=== PATIENT | female | born 2000 | race Caucasian/White ===

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

== ENCOUNTER 2022-01-01 11:02 | Emergency (ER) | payer OTHER, SELFPAY ==
[2022-01-01 11:25] VITALS: BP 119/74; PULSE 68; RESP 19; TEMP 36.8; O2SAT 98; BMI 26.6
[2022-01-01 11:41] LABS: UTC Strep Screen (Rapid) Negative (Negative)
--- NOTE | 2022-01-01 11:53 | EXP.UTC ---
Discharge Plan Disposition Patient Disposition: Home, Self-Care Condition: Good Prescriptions Prescriptions: No Action Kyleena 17.5 mcg/24 hrs (5 yrs) 19.5 mg intrauterine device INTRAUTERI norgestimate-ethinyl estradiol 0.25-35 mg-mcg tablet 1 tab PO DAILY Qty: 28 11RF valacyclovir 1 gram tablet 1,000 mg PO BID Qty: 60 4RF Referrals Follow up/Referrals: Mike Lane MD [Primary Care Provider] - See instructions Activity Restrictions/Add. Instructions Additional Instructions/Restrictions: *Monitor Temp, Over the counter Motrin or Tylenol as directed/as needed Tylenol every 4 hours and Motrin every 6 hours (as long as your family doctor has told you that you can take it) for fever or pain. and straight to ER if unable to lower temp less than 101.0 after medication given *Warm salt water gargles may help to soothe the throat *Throat Lozenges? *Warm fluids like tea with honey may help to soothe the throat? *Sleep elevated *Humidifier/Vaporizer Your throat swab was sent for culture. Those results are typically sent to your primary care. Be sure to follow up in 2-3 days with your family doctor/primary care physician if no improvement so they can review those result and treat if necessary. If you don?t have a primary care doctor, I recommend you get one but in the mean time, you will have to return to a walk in clinic Follow up IMMEDIATELY for new or worsening symptoms or no Noticeable improvement over the next 48-72 hours. 911 for difficulty breathing or swallowing Clinical Impressions Clinical Impression: Viral pharyngitis Stand Alone Forms Stand Alone Forms: Work/School Release Instructions Patient Instructions: DI for Viral Pharyngitis, Viral Pharyngitis Discharge ED Provider: Lovely Diaz [facility] General Stated complaint: Sore throat Mode of Arrival: Ambulatory Source of Information: Patient Limitations: No Limitations Time Seen by Provider: 01/01/22 11:53 Description of Symptoms (Recalled from Triage Doc. by RN): PATIENT C/O SORE THROAT, CONGESTION AND HEADACHE SINCE SUNDAY HEENT Symptoms (Recalled from RN notes): Yes Resp Symptoms (Recalled from RN notes): No Skin Symptoms (Recalled from RN notes): No MS Symptoms (Recalled from RN notes): No Functional Status (Recalled from RN notes): WNL History of Present Illness Provider Complaint: Patient states that on sunday she started with sore throat, nasal congestion and headaches States that she has not felt well all weekend and worried that she may have strep throat so they wanted to get her tested Related Data Home Medications Medication Instructions Recorded Confirmed levonorgestrel 17.5 mcg/24 hrs intrauterine 10/08/20 (5yrs) 19.5mg intrauterine device (Kyleena) Previous Rx's Medication Instructions Recorded norgestimate 0.25 mg-ethinyl 1 tab PO DAILY #28 tabs 01/21/21 estradiol 35 mcg tablet valacyclovir 1 gram tablet 1,000 mg PO BID #60 tabs 08/04/21 Allergies Allergy/AdvReac Type Severity Reaction Status Date / Time No Known Allergies Allergy Verified 07/29/21 14:32 Worker's Comp Is this a Worker's Comp case?: No PFSH PFSH Medical History (Updated 01/01/22 @ 12:01 by Lovely Diaz APRN) Anxiety Migraine Surgical History (Updated 01/01/22 @ 11:39 by Germaine Taylor RN) History of tonsillectomy Social History (Updated 01/01/22 @ 11:39 by Germaine Taylor RN) Smoking Status: Never smoker alcohol intake: never substance use type: denies use current occupational status: student Travel in the last 8 weeks: None household members: other housing: apartment number of children: 0 caffeine: No ROS Obtained: Yes All systems reviewed & no additional complaints except as documented and Yes Systems reviewed as appropriate & no additional complaints except as documented Constitutional Constitutional: Reports system reviewed and no additiona
[2022-01-01 12:02] VITALS: BP 119/74; PULSE 68; RESP 19; TEMP 36.8; O2SAT 98
== END 2022-01-01 12:05 | disposition home or self-care (01) ==
PROVIDERS: Emergency Provider Nurse Practitioner; PCP Internal Medicine Adolescent Medicine
DX: J02.9 Acute pharyngitis, unspecified (principal); R09.81 Nasal congestion; G43.909 Migraine, unspecified, not intractable, without status migrainosus; F41.9 Anxiety disorder, unspecified; Z79.899 Other long term (current) drug therapy; Z79.3 Long term (current) use of hormonal contraceptives
CPT/HCPCS: 87880; 99213; G0463

== ENCOUNTER 2024-12-26 10:21 | Outpatient (CLI) | payer OTHER, SELFPAY ==
--- OUTSIDE RECORDS SUMMARY | 2024-12-29 10:30 | XMS_ITS | Clinical Summary ---
Author Organization [facility] Address [address] [place] [address] Care Team Providers Care Cotton Washer Name Role Phone Mike Lane MD Primary Care Provider [phone] Social History Tobacco Use Types Packs/Day Years Used Date Smoking Tobacco: Never Comments Unknown Sex and Gender Information Value Date Recorded Sex Assigned at Not on file Legal Sex Female 6:42 PM EDT Gender Identity Not on file Sexual Orientation Not on file Last Filed Vital Signs Vital Sign Reading Time Taken Comments Blood Pressure - - Pulse - - Temperature - - Respiratory Rate - - Oxygen Saturation - - Inhaled Oxygen Concentration - - Weight 56.8 kg (125 lb 2.1 oz) 09/15/2014 9:45 A M EDT Height 162.6 cm (5' 4 ) 09/15/2014 9:45 AM EDT Body Mass Index 21.48 09/15/2014 9:45 AM EDT Plan of Treatment Not on file Care Teams Cotton Washer Relationship Specialty Start Date End Date Mike Lane MD [address] [place] [address] [place] [id number] PCP - General 07/30/20
== END 2024-12-26 23:59 | disposition home or self-care (01) ==
LOC: LAB.DROPOF 12-29 10:21
PROVIDERS: Visit Provider Obstetrics & Gynecology
DX: N39.9 Disorder of urinary system, unspecified (principal)
CPT/HCPCS: 87491; 87529; 87591; 87661; 87798; 87801

== ENCOUNTER 2024-12-31 15:17 | Outpatient (CLI) | payer OTHER, SELFPAY ==
--- OUTSIDE RECORDS SUMMARY | 2024-12-31 15:20 | XMS_ITS | Clinical Summary ---
Author Organization [facility] Address [address] [place] [address] Care Team Providers Care Funeral Car Chauffeur Name Role Phone Mike Lane MD Primary Care Provider Social History Tobacco Use Types Packs/Day Years [...] of Treatment Not on file Care Teams Funeral Car Chauffeur Relationship Specialty Start Date End Date Mike Lane MD [address] [place] [address] [place] [id number] PCP - General 07/30/20
--- NOTE | 2024-12-31 15:30 | US_ITS ---
PROCEDURE: US TRANSVAGINAL CLINICAL INDICATION: IUD placement COMPARISON: US US TRANSVAGINAL from 11/15/2018 FINDINGS: Transvaginal sonographic images of the pelvis were obtained. UTERUS: 6.8 cm x 4.2cmx 3.1cm anteverted with a combined endometrial thickness of 3.8mm. There is an IUD within the uterine cavity in the correct position. LEFT OVARY: [id number] with a volume of 4.4ml. The left ovary contains multiple small peripheral follicles giving the ovary a polycystic appearance. RIGHT OVARY: 4cmx [id number] with a volume of 5.3ml. The right ovary contains multiple small peripheral follicles giving the ovary a polycystic appearance. There is trace fluid adjacent to the right ovary. Both ovaries are seen and appear polycystic. Doppler flow to both ovaries are seen. There is no fluid in the cul-de-sac. IMPRESSION: 1. Anteverted uterus normal in shape and size. The endometrium is thin. 2. There is an IUD within the uterine cavity in the correct position. 3. Both ovaries are seen and appear polycystic with multiple small peripheral follicles. 4. There is trace fluid adjacent to the right ovary. 5. No fluid in the cul-de-sac. Dictated by: Fercho Donaldson MD 12/31/2024 20:02 Fercho Donaldson MD in [place] 12/31/2024 20:02
== END 2024-12-31 23:59 | disposition home or self-care (01) ==
LOC: RAD 15:18
PROVIDERS: PCP Internal Medicine Adolescent Medicine; Visit Provider Obstetrics & Gynecology
DX: N85.4 Malposition of uterus (principal); N83.02 Follicular cyst of left ovary; N83.01 Follicular cyst of right ovary; Z97.5 Presence of (intrauterine) contraceptive device
CPT/HCPCS: 76830

== ENCOUNTER 2025-02-04 10:07 | Outpatient (CLI) | payer OTHER, SELFPAY ==
--- NOTE | 2025-02-04 | US_ITS ---
PROCEDURE: US TRANSVAGINAL CLINICAL INDICATION: COMPARISON: US US TRANSVAGINAL from 12/31/2024 FINDINGS: Transvaginal sonographic images of the pelvis were obtained. UTERUS: 6.6 cm x 3.9 cmx 3.6 cm retroverted with a combined endometrial thickness of 3.9mm. There is an IUD within the uterine cavity in the correct position. LEFT OVARY: 2.6 cmx2.2cm there are multiple small peripheral follicles giving the ovary a polycystic appearance. RIGHT OVARY: 3.4cmx 1.9 cmx1.9 cm with a volume of 6.4ml. There is evidence of an old corpus luteum in the right ovary. There are multiple small peripheral follicles giving the ovary a polycystic appearance. Both ovaries are seen and appear polycystic. Doppler flow to both ovaries are seen. There is moderate fluid in the cul-de-sac. IMPRESSION: 1. Retroverted uterus normal in shape and size. The endometrium is thin measuring 3.9 mm. 2. There is an IUD within the uterine cavity in the correct position. 3. Both ovaries are seen and appear polycystic with multiple small peripheral follicles. 4. There is a moderate amount of fluid in the cul-de-sac. This could be either recent bleeding from an ovarian cyst or possibly from an inflammatory process. The fluid appears clear. 5. I spoke to Dr. Winslow about the results. Dictated by: Fercho Donaldson MD 02/04/2025 11:50 Fercho Donaldson MD in [place] 02/04/2025 11:50
--- NOTE | 2025-02-04 10:28 | US_ITS ---
FINAL REPORT TECHNIQUE: Sonographic images of the abdomen were obtained in all four quadrants. CLINICAL HISTORY: RLQP FINDINGS: LIVER: Homogeneous. No focal hepatic lesion or intrahepatic biliary dilatation. GALLBLADDER: No gallstones. No pericholecystic fluid collection or gallbladder wall thickening. The common duct measures 4 mm. This is within normal limits for age. PANCREAS: Obscured. RIGHT KIDNEY: 10.1 cm. No hydronephrosis, mass or stone. LEFT KIDNEY: 10.1 cm. No hydronephrosis, mass or stone. SPLEEN: 8.1 cm. No focal splenic lesion. AORTA/IVC: No abdominal aortic aneurysm. Visualized IVC within normal limits. OTHER: No ascites. IMPRESSION: Unremarkable ultrasound of the abdomen. Reviewed, Interpreted and Dictated by Evelia Chan MD Transcribed by Samia Bass Authenticated and . [facility]
[2025-02-04 10:43] LABS: Hematocrit 38.3 % (37.0-47.0); Hemoglobin 12.7 g/dL (12.2-16.2); Immature Granulocytes % 0.4 %; Mean Corpuscular HGB Conc 33.2 g/dL (31.8-35.4); Mean Corpuscular Hemoglobin 29.5 pg (27.0-31.2); Mean Corpuscular Volume 88.9 fl (81-99); Nucleated Red Blood Cells % 0 %; Platelet Count 248 K/mm3 (142-424); Red Blood Count 4.31 M/mm3 (4.20-5.40); Red Cell Distribution Width-SD 39.9 fL; White Blood Count 7.8 K/mm3 (4.8-10.8)
[2025-02-04 11:30] LABS: Alanine Aminotransferase 22 U/L (12-78); Albumin Level 4.5 g/dl (3.5-5.0); Albumin/Globulin Ratio 2.3 (1.1-1.8); Alkaline Phosphatase 66 U/L (38-126); Amylase 64 U/L (30-110); Anion Gap 10.5 mEq/L (5-15); Aspartate Amino Transferase 23 U/L (14-36); Bilirubin,Total 0.4 mg/dl (0.2-1.3); Blood Urea Nitrogen 13 mg/dl (7-17); Calcium 9.8 mg/dl (8.4-10.2); Carbon Dioxide 23 mmol/L (22.0-30.0); Chloride 105 mmol/L (98-107); Creatinine,Serum 0.70 mg/dl (0.52-1.04); Estimated Glomerular Filt Rate 105 ml/min (>60); GFR (African American) 127 ML/MIN (>60); Globulin 2.0 g/dL (1.3-3.2); Glucose 99 mg/dl (74-100); Lipase 83 U/L (23-300); Potassium 4.5 mmoL/L (3.5-5.1); Sodium 134 mmol/L (136-145); Total Protein,Serum 6.5 g/dl (6.3-8.2)
== END 2025-02-04 23:59 | disposition home or self-care (01) ==
PROVIDERS: PCP Internal Medicine Adolescent Medicine; Visit Provider Internal Medicine Adolescent Medicine
DX: E28.2 Polycystic ovarian syndrome (principal); N85.4 Malposition of uterus; R10.84 Generalized abdominal pain; R10.31 Right lower quadrant pain; R93.89 Abnormal findings on diagnostic imaging of other specified body structures; Z97.5 Presence of (intrauterine) contraceptive device
CPT/HCPCS: 36415; 76700; 76830; 80053; 82150; 83690; 85025; 85651